=== PATIENT | female | born 1980 | race Caucasian/White ===

== ENCOUNTER 2017-06-25 18:02 | Emergency (ER) | payer OTHER ==
[~2017-06-25] VITALS: Wt 68.0 kg
[2017-06-25] MEDS ORDERED: IBUPROFEN 600 MG TAB PO ONE (20:30)
--- NOTE | 2017-06-25 22:56 | RADRPT ---
PROCEDURE: XR left Ankle. CLINICAL INDICATION: Left ankle pain. TECHNIQUE: AP, oblique and lateral views of the left ankle were performed. COMPARISON: None. FINDINGS: No fracture or dislocation. The bones are normal mineralization without cortical destruction. The talar dome is intact and ankle joint mortise well maintained. The remaining bones of the foot an d ankle are unremarkable. No soft tissue or osseous abnormality. IMPRESSION: 1. No fracture, dislocation, or soft tissue abnormality. RPTAT:AAJJ Physician Ravi Date Time Electronically viewed and signed by Physician Ravi on 06/25/2017 22:56 ORESTES/
--- NOTE | 2017-06-25 22:57 | RADRPT ---
PROCEDURE: XR left Hip. CLINICAL INDICATION: Pain. TECHNIQUE: AP and frog lateral views of the left hip were performed. COMPARISON: None. FINDINGS: No fracture or dislocation.The bones are normal in mineralization without cortical destruction. The left hip joint space is well maintained. The femoral head articulates normally with the acetabulum. The left pelvis and sacroiliac joint as well as visualized lumbar spine are unremarkable. No soft tissue abnormality. IMPRESSION: 1. Unremarkable left hip. RPTAT:AAJJ Physician Ravi Date Time Electronically viewed and signed by Physician Ravi on 06/25/2017 22:56 ORESTES/
[2017-06-25] MEDS ORDERED: IBUP-1542 PO (23:00)
[2017-06-25] MEDS ORDERED: HYDR-906 PO (23:01)
[2017-06-25 23:16] VITALS: BP 122/78; PULSE 79; RESP 18; TEMP 98
--- NOTE | 2017-06-26 01:31 | ERD ---
ER Documentation Chief Complaint Date/Time DATE: 06/26/17 TIME: 01:28 Chief Complaint EMILY FALL, HAS LEFT ANKLE PAIN HPI This is a 36-year-old female presents to the ER with left ankle pain after she fell down from 1 stairs twisting her left ankle. Patient states that pain is worse whenever she puts weight on it. Pain is worse on the lateral side of her left ankle. She denies any numbness or tingling of her extremity. Patient also complaining of the pain radiating to her left hip. Patient denies any fevers or chills. ROS 12 point review of systems was done, all negative except per HPI. Medications Home Meds Active Scripts Hydrocodone/Acetaminophen ([place] 5-325 Tablet) 1 Each Tablet, 1 TAB PO Q6H Y for PAIN, #10 TAB Prov:MARU COPPOLA 06/25/17 Ibuprofen* (Ibuprofen*) 600 Mg Tablet, 600 MG PO BID for 7 Days, TAB Prov:ANATMARU C 06/25/17 Allergies Allergies: Coded Allergies: No Known Allergy (Unverified , 06/25/17) PMhx/Soc Medical and Surgical Hx: pt denies Medical Hx, pt denies Surgical Hx Hx Alcohol Use: No Hx Substance Use: No Hx Tobacco Use: No Smoking Status: Never smoker Physical Exam Vitals Vital Signs Date Time Temp Pulse Resp B/P Pulse Ox O2 Delivery O2 Flow Rate FiO2 06/25/17 23:16 98.0 79 18 122/78 99 Room Air 06/25/17 18:05 98.1 71 18 120/76 99 Physical Exam GENERAL: The patient is well developed and appropriate for usual state of health , in no apparent distress. HEENT: Atraumatic CHEST: Clear to auscultation bilaterally. There are no rales, wheezes or rhonchi. HEART: Regular rate and rhythm. No murmurs, clicks, rubs or gallops. EXTREMITIES: Ankle-patient is able to bear weight and ambulate without any pain. Ankle is swelling to the lateral malleolus. Patient can flex/ext, invert /derek ankle, range of motion is painful. No obvious surface trauma, ecchymosis. Tenderness to lateral malleolus. Anterior talofibular ligament, posterior talofibular ligament, calcaneofibular ligament NT and without swelling. Not tender or deformity of the midfoot or over the proximal fifth metatarsal, good dorsalis pedis and posterior tibial pulses and sensation to light touch is normal. Talar tilt test is negative for ligament laxity to valgus or varus stress. Negative anterior drawer.. Peroneal nerve is intact with strong eversion and plantarflexion. Negative squeeze test. Knee: Full and non painful ROM, not TTP. Left hip: Has painful left hip abduction. She does not have any tenderness to palpation along the hip joint. NEURO: Alert and oriented SKIN: There is no apparent rash or petechia. The skin is warm and dry. Results 24 hrs Current Medications Medications (Trade) Dose Ordered Sig/Emily Route PRN Reason Start Time Stop Time Status Last Admin Dose Admin Ibuprofen (Motrin) 600 mg ONCE ONCE PO 06/25/17 20:30 06/25/17 20:31 DC 06/25/17 20:[address] [place] [address] Radiology Main Line: [phone] DIAGNOSTIC IMAGING REPORT Patient: JUSTICE SUTHERLAND : 1980 Age: 36 Sex: F MR #: [id number] DOS: 06/25/172013 Ordering MD: MARU COPPOLA PASaumya Location: [facility] Room/Bed: PROCEDURE: XR left Ankle. CLINICAL INDICATION: Left ankle pain. TECHNIQUE: AP, oblique and lateral views of the left ankle were performed. COMPARISON: None. FINDINGS: No fracture or dislocation. The bones are normal mineralization without cortical destruction. The talar dome is intact and ankle joint mortise well maintained. The remaining bones of the foot and ankle are unremarkable. No soft tissue or osseous abnormality. IMPRESSION: 1. No fracture, dislocation, or soft tissue abnormality. RPTAT:AAJJ Physician Ravi Date Time Electronically viewed and signed by Physician Ravi on 06/25/2017 22:56 ORESTES/ CC: MARU COPPOLA [address], [place] [address] Radiology Main Line: [phone] DIAGNOSTIC IMAGING REPORT Patient: JUSTICE SUTHERLAND : 1980 Age: 36 Sex: F MR #: [id number] DOS: 06/25/17 0000 Ordering MD: MARU COPPOLA PA-C Location: [facility] Room/Bed: PROCEDURE: XR left Hip. CLINICAL INDICATION: Pain. TECHNIQUE: AP and frog lateral views of the left hip were performed. COMPARISON: None. FINDINGS: No fracture or dislocation.The bones are normal in mineralization without cortical destruction. The left hip joint space is well maintained. The femoral head articulates normally with the acetabulum. The left pelvis and sacroiliac joint as well as visualized lumbar spine are unremarkable. No soft tissue abnormality. IMPRESSION: 1. Unremarkable left hip. RPTAT:AAJJ Physician Ravi Date Time Electronically viewed and signed by Physician Ravi on 06/25/2017 22:56 ORESTES/ CC: MARU COPPOLA Procedures/MDM Differential diagnosis includes but is not limited to ankle sprain, ankle fracture, Achilles tendon rupture, proximal fibula fracture, distal fibula avulsion fracture, bimalleolar or trimalleolar fracture, peroneal nerve injury, acute compartment syndrome. This is likely an ankle sprain. Patient's x-ray was negative for any fractures or dislocations. Patient is neurovascularly intact. In regards to patient's hip pain, there is no evidence of fracture or dislocation on x-ray. Patient sent home with ibuprofen and [place]. She is to follow-up with her primary care doctor within 1-2 days return to ER sooner if symptoms worsen. My medical decision making sure with the patient she understands and agrees with plan. Departure Diagnosis: Primary Impression: Ankle injury Condition: Stable Patient Instructions: Treating Ankle Sprains Referrals: CAITIE SCHNEIDER (PCP) Additional Instructions: Call your primary care doctor TOMORROW for an appointment during the next 1-2 days.See the doctor sooner or return here if your condition worsens before your appointment time. MARU COPPOLA Jun 26, 2017 01:31
== END 2017-06-25 23:17 | disposition home or self-care (01) ==
LOC: FTE 18:02
DX: S99.911A Unspecified injury of right ankle, initial encounter (principal); W10.8XXA Fall (on) (from) other stairs and steps, initial encounter; Y92.9 Unspecified place or not applicable
CPT/HCPCS: 73510; 73610; Z7502; Z7610